=== PATIENT | female | born 1960 | race Caucasian/White ===

== ENCOUNTER 2017-04-06 08:48 | Day surgery (SDC) | payer OTHER ==
[~2017-04-06] VITALS: Ht 162.6 cm; Wt 66.5 kg
[~2017-04-06 08:48] MED LIST: OMEP20CA16 PO; SITA100T8 PO; TRAM50TA2 PO
[2017-04-06 09:51] VITALS: Ht 162.6 cm; Wt 66.5 kg
[2017-04-06] MEDS ORDERED: GLIPIZIDE (10:10)
--- NOTE | 2017-04-06 10:59 | OPPN ---
Date/Time of Note Date/Time of Note DATE: 04/06/17 TIME: 10:57 Operative Report Preoperative Diagnosis Screening colonoscopy Postoperative Diagnosis Poor prep making the exam suboptimal Internal hemorrhoids No gross neoplasm is identified Operation/Procedure Performed Colonoscopy and biopsy Surgeon see signature line regulatory affairs assistant None Anesthesia: moderate sedation Estimated blood loss: none Transfusion Required none Specimen Sigmoid polyp biopsy Grafts/Implants none Complications none KALIA COOPER MD Apr 06, 2017 10:59
--- NOTE | 2017-04-06 10:59 | OPPN ---
Date/Time of Note Date/Time of Note DATE: 04/06/17 TIME: 10:57 Operative Report Preoperative Diagnosis Screening colonoscopy Postoperative Diagnosis Poor prep making the exam suboptimal Internal hemorrhoids No gross neoplasm is identified Operation/Procedure Performed Colonoscopy and biopsy Surgeon see signature line assistant director None Anesthesia: moderate sedation Estimated blood loss: none Transfusion Required none Specimen Sigmoid polyp biopsy Grafts/Implants none Complications none KALIA COOPER MD Apr 06, 2017 10:59
--- NOTE | 2017-04-06 10:59 | OPPN ---
Date/Time of Note Date/Time of Note DATE: 04/06/17 TIME: 10:57 Operative Report Preoperative Diagnosis Screening colonoscopy Postoperative Diagnosis Poor prep making the exam suboptimal Internal hemorrhoids No gross neoplasm is identified Operation/Procedure Performed Colonoscopy and biopsy Surgeon see signature line assistant to the president None Anesthesia: moderate sedation Estimated blood loss: none Transfusion Required none Specimen Sigmoid polyp biopsy Grafts/Implants none Complications none KALIA COOPER MD Apr 06, 2017 10:59
[2017-04-06] MEDS ORDERED: MIDAZOLAM 1 MG/ML 2 ML INJ ONE ×2 (11:13)
[2017-04-06] MEDS ORDERED: FENTAnyl 50 MCG/ML VIAL ONE (11:13)
[2017-04-06 11:27] VITALS: BP 122/75; RESP 14
--- NOTE | 2017-04-06 11:46 | GILP ---
DATE OF PROCEDURE: NAME OF PROCEDURE: Colonoscopy and biopsy. SURGEON: Kalia Roque MD PREOPERATIVE DIAGNOSIS: Screening colonoscopy. POSTOPERATIVE DIAGNOSES 1. Colonoscopy all the way to the cecum. 2. Poor prep making the exam very suboptimal. 3. Small sigmoid colon polyp was removed using the biopsy forceps. 4. Internal hemorrhoids. INDICATION FOR THE PROCEDURE: Ms. Maryjane Lowe is a 56-year-old female patient who was scheduled for screening colonoscopy. The procedure and possible complications were well explained to the patient, she understood and cons ented to the procedure. DESCRIPTION OF PROCEDURE: Under the influence of fentanyl and Versed, the colonoscope was carefully introduced in the rectum and under direct vision, it was advanced all the way to the cecum. FINDINGS: The patient had poor prep making the exam suboptimal. The patient was noted to have a sm all sigmoid colon polyp and it was removed using the biopsy forceps. She had internal hemorrhoids. She tolerated the procedure very well and there was no complication from the procedure. At the end of the procedure, she was awake with stable vital signs and she was discharged home to the care of h er family. IMPRESSION: Please see postoperative diagnosis. PLAN: Because of the poor prep and suboptimal nature of the examination, would recommend repeat col onoscopy with a better preparation in 2 years. Dictated By: KALIA BRODY/MCKINLEY Conf#: [id number] DID#: [id number]
== END 2017-04-06 17:33 | disposition home or self-care (01) ==
LOC: GIL 08:48
PROVIDERS: ATTEND Internal Medicine Gastroenterology
DX: Z12.11 Encounter for screening for malignant neoplasm of colon (principal); K63.5 Polyp of colon; K64.8 Other hemorrhoids; E11.9 Type 2 diabetes mellitus without complications
CPT/HCPCS: 45380; 82962; 88305; J2250; J3010; Z7610